=== PATIENT | male | born 1990 | race African-American/Black ===

== ENCOUNTER 2017-01-12 13:35 | Emergency (ER) | payer BC ==
--- NOTE | ~2017-01-12 | CR142 ---
[facility] A Service of [facility] & [facility] RADIOLOGY TEXT RESULTS PATIENT: CITLALI VARGAS LOCATION: [facility] : [birth year] UNIT #: [id number] AGE: [address]: Holden Watson MD SEX: M ORDER DR: [id number] [facility] [address] [place], [place] [address] [id number] MR#: [id number] Acc #: [id number] NAME: CITLALI VARGAS : 1990 SEX: M STUDY DATE/TIME: 01/12/2017 11:32 UNIT: [facility] ROOM: STUDY DESCRIPTION: CR Hand Min 3 Views Rt Attending Physician: Holden Watson M.D. Ordering Physician: Holden Watson M.D. Primary Care Physician: No Primary Care Physician MEDICAL IMAGING REPORT This report is preliminary unless electronic signature is present EXAM 3 views right hand performed on 01/12/2017. HISTORY 26-year-old male with hand trauma last evening after punching a window. FINDINGS There is a radiopaque foreign body suspected in the soft tissues of the fifth digit distal and medial to the distal phalanx. This may represent a small glass shard. The remaining digits are intact, and no additional radiopaque foreign bodies are suggested. IMPRESSION Small radiopaque foreign body in the soft tissues medial to the distal phalanx fifth digit. This could represent a small glass shard. No fracture or dislocation otherwise identified. Dictated by... Joe Medeiros M.D. THIS IS AN ELECTRONICALLY VERIFIED REPORT Joe Medeiros M.D. at 01/12/2017 4:52 PM EDMOND/denny TD: 01/12/2017 14:22 JOB #: [id number] MEDICAL IMAGING REPORT COPY
== END 2017-01-12 15:00 | disposition home or self-care (01) ==
LOC: CED 13:35
DX: S61.411A Laceration without foreign body of right hand, initial encounter (principal); Y29.XXXA Contact with blunt object, undetermined intent, initial encounter; Y93.89 Activity, other specified; Y92.69 Other specified industrial and construction area as the place of occurrence of the external cause; Y99.0 Civilian activity done for income or pay
CPT/HCPCS: 12002; 73130; 99283